=== PATIENT | female | born 1975 | race African-American/Black ===

== ENCOUNTER 2021-01-20 16:52 | Emergency (ER) | payer OTHER ==
[2021-01-20 17:00] VITALS: BP 113/81; PULSE 88; TEMP 98.4; BMI 44.1
[2021-01-20] MEDS ORDERED: KETOROLAC TROMETHAMINE 30 MG/1 ML VIAL IM ONE (19:11)
[2021-01-20] MEDS ORDERED: KETOROLAC TROMETHAMINE 30 MG/1 ML VIAL ONE (19:32)
== END 2021-01-20 20:30 | disposition home or self-care (01) ==
LOC: JER 16:52 → JERFT 16:52
PROC: 3E0233Z Introduction of Anti-inflammatory into Muscle, Percutaneous Approach (ICD-10-PCS; principal; 2021-01-20)
DX: M25.561 Pain in right knee (principal)
CPT/HCPCS: 73562-TC-RT-FY; 99284-25